=== PATIENT | female | born 1970 | race Caucasian/White ===

== ENCOUNTER 2021-09-10 14:30 | Emergency (ER) | payer OTHER, SELFPAY ==
[2021-09-10 14:31] VITALS: BP 163/94; PULSE 71; RESP 15; TEMP 37.1; O2SAT 98; BMI 40.6
--- NOTE | 2021-09-10 15:20 | RAD_ITS ---
STUDY: X-RAY CHEST REASON FOR EXAM: Female, 51 years old. CHEST PAIN CAD TECHNIQUE: XR Chest 1 View COMPARISON: None FINDINGS: There is no demonstrated pleural abnormality. Normal size heart. Normal mediastinum and angely. Normal visualized pulmonary arteries. Normal visualized aortic arch and descending thoracic aorta. Normal visualized thoracic spine. Normal visualized ribs, clavicles, and shoulders. There is no demonstrated abnormality of the visualized soft tissue structures of the upper abdomen. RAD/Chest 1 View (Portable) IMPRESSION: There are no acute findings. Electronically Signed: Gato Mcgovern MD at 16:11 EDT ,
--- NOTE | 2021-09-10 15:21 | EDS_ITS ---
HPI History of Present Illness Chief Complaint: Hypertension Narrative Narrative: Patient presents with elevated blood pressure readings. She states he has been having problems with elevated blood pressure and was seen by her nurse practitioner and started taking her blood pressure. It has been elevated as high as 170 systolic this morning. She went to work today and presents with her boss because of elevated blood pressure readings. She states she has had intermittent headaches for months. She feels heart palpitations but no chest pressure, but she does feel pressure in her neck radiating towards her ears and head. She denies any nausea or vomiting. No shortness of breath. No problems with urination. She presents because she has had elevated blood pressure readings today above 200 systolic with diastolic being in the 120s. PFSH PFSH Medical History no medical history Home Medications amlodipine 2.5 mg PO DAILY #30 tab 09/10/21 [Rx Last Taken Unknown] Allergy/AdvReac Type Severity Reaction Status Date / Time azithromycin [From Zithromax] Allergy Anaphylaxis Verified 09/10/21 14:31 Penicillins [PCN] Allergy Rash Verified 09/10/21 14:31 Surgical History no surgical history Social History Smoking Status: Never smoker ROS ROS ED ROS Narrative Constitutional: No fever, no chills. HEENT: No sore throat. No neck pain. No loss of vision. No rhinorrhea. Cardiovascular: No chest pain, but feels pressure in her neck and head. Positive palpitations. No pedal edema. Respiratory: No cough, no shortness of breath. Abdominal: No abdominal pain. No nausea. No vomiting. Genitourinary: No dysuria. No hematuria. Musculoskeletal: No myalgias. No arthralgias. Neurologic: Positive headaches. No dizziness. No lightheadedness. Skin: No rash. No change in color. Psychiatric: No depression. No anxiety. EXAM Physical Exam Narrative Exam Narrative: Currently, patient's blood pressure is 163/94. I do feel that comprehensive work-up should be pursued as she did have elevated readings above 200 today. I will obtain a CT of the brain along with chest x-ray for her heart palpitations. I will also obtain basic laboratory work such as CBC, CMP, and troponin. Const Vital Signs: 09/10/21 14:31 09/10/21 15:37 09/10/21 16:22 Temperature 98.7 F Temperature Source Temporal Pulse Rate 71 56 L 65 Respiratory Rate 15 16 18 Blood Pressure 163/94 H 153/84 H 143/82 H Blood Pressure Mean 117 107 102 Pulse Ox 98 98 Oxygen Delivery Method Room Air Room Air MDM MDM MDM Narrative Medical decision making narrative: Comprehensive work-up was pursued. CT of the brain because she was having headaches, shows no evidence of hemorrhage. Chest x-ray read by myself shows no acute process. CBC is normal with a normal white count of 7.1, hemoglobin normal at 13.2. Platelet count normal at 338. CMP shows chloride slightly elevated at 110, but otherwise unremarkable. High- sensitivity troponin less than 3. This is greater than a 3-hour troponin. Her blood pressure has come down to 143/82 by itself. She feels improved. However, I will start her on amlodipine low-dose 2.5 mg orally on a daily basis as her EKG demonstrates sinus bradycardia at 56 bpm with a slight sinus arrhythmia. No STEMI. I feel she be discharged safely home with follow-up to her primary care provider. She will continue her logging of her blood pressure. Disposition is discharged home in stable condition. Return instructions were reviewed. Lab Data Labs: Laboratory Results - last 24 hr 09/10/21 09/10/21 15:40 15:40 WBC 7.1 RBC 4.47 Hgb 13.2 Hct 39.9 MCV 89.3 MCH 29.5 MCHC 33.1 RDW Std Deviation 40.2 RDW Coeff of Antony 12.3 Plt Count 338 MPV 9.1 Immature Gran % (Auto) 0.100 Neut % (Auto) 52.1 Lymph % (Auto) 39.2 Greene % (Auto) 7.2 Eos % (Auto) 0.7 Baso % (Auto) 0.7 Absolute Neuts (auto) 3.7 Absolute Lymphs (auto) 2.78 Nucleated RBC % 0 Sodium 142 Potassium 4.0 Chloride 110 H Carbon Dioxide 26.0 Anion Gap 6 BUN 13 Creatinine 0.88 Estim Creat Clear Calc 66.04 Est GFR (MDRD) Af Amer 87 Est GFR (MDRD) Non-Af 72 BUN/Creatinine Ratio 14.7 Glucose 97 Calcium 9.0 Total Bilirubin 0.50 AST 13 L ALT 23 Alkaline Phosphatase 72 Troponin I High Sens < 3 L Total Protein 7.1 Albumin 3.4 Globulin 3.7 Albumin/Globulin Ratio 0.9 Radiography Diagnostic Testing: Clinical Impression(s) from Imaging Studies Chest X-Ray 09/10/21 15:20 IMPRESSION: There are no acute findings. Electronically Signed: Gato Mcgovern MD at 16:11 EDT , Brain CT 09/10/21 15:52 IMPRESSION: There are no acute intracranial findings. Electronically Signed: Gato Mcgovern MD at 16:11 EDT , Discharge Plan Triage Chief Complaint: Hypertension ED Provider: Pawel Ramirez Dx/Rx/DC Orders Clinical Impression: Hypertension, Palpitations Instructions: ED Hypertension New Begin Treatment, ED Palpitations Prescriptions: New amlodipine 2.5 mg tablet 2.5 mg PO DAILY Qty: 30 RF: 0 Referrals: John Terrazas [Other] - 1 Day Disposition Disposition: Home, Self Care Discharge Date/Time: 09/10/21 16:32
--- NOTE | 2021-09-10 15:21 | EKG12_ITS ---
Test Reason : HYPERTENSION Blood Pressure : / mmHG Vent. Rate : 056 BPM Atrial Rate : 056 BPM P-R Int : 140 ms QRS Dur : 084 ms QT Int : 438 ms P-R-T Axes : -14 006 002 degrees QTc Int : 422 ms Sinus bradycardia with sinus arrhythmia Otherwise normal ECG Confirmed by CHARLENE CALDEÓRN, EDY ([id number]), editor magazine JOAQUIN LEO ([id number]) on 09/11/2021 11:06:45 AM Referred By: CARL Confirmed By:EDY CHANG MD
[2021-09-10 15:37] VITALS: BP 153/84; PULSE 56; RESP 16; O2SAT 98
[2021-09-10 15:47] LABS: Absolute Lymphocyte Count 2.78 X10^3/uL (0.83-4.51); Absolute Neutrophil Count 3.7 X10^3/uL (2.0-7.7); Basophil# 0.05 X10^3/uL; Basophil% 0.7 % (0-1); Eosinophil# 0.05 X10^3/uL; Eosinophils% 0.7 % (0-5); Hematocrit 39.9 % (37-47); Hemoglobin 13.2 g/dL (12.0-15.0); Lymphocyte # 2.78 X10^3/ul (0.83-4.51); Lymphocyte % 39.2 % (19-41); Mean Corp Hgb Conc 33.1 g/dL (32-36); Mean Corpuscular Hgb 29.5 pg (27.0-32.0); Mean Corpuscular Volume 89.3 fL (81-99); Mean Platelet Vol. 9.1 fl (6.2-12.0); Monocyte# 0.51 X10^3/uL; Monocyte% 7.2 % (0-10); NRBC Flagged by Analyzer 0 % (0-5); Neutrophil % 52.1 % (47-70); Platelet Count 338 K/mm3 (150-450); RBC Distribution Width CV 12.3 % (11.6-14.6); RBC Distribution Width SD 40.2 fl (35.1-43.9); Red Blood Count 4.47 M/mm3 (4.2-5.4); White Blood Count 7.1 K/mm3 (4.4-11.0)
--- NOTE | 2021-09-10 15:52 | CT_ITS ---
STUDY: CT BRAIN WITHOUT CONTRAST REASON FOR EXAM: Female, 51 years old. Headaches, Hypertension TECHNIQUE: Transaxial CT imaging of the brain was performed without administration of intravenous contrast material. Individualized dose optimization techniques were used for this CT. COMPARISON: None FINDINGS: Normal calvarium. Normal soft tissues. Normal size ventricles and extra-axial spaces for the patient''s age. Normal white matter tracts of the cerebral hemispheres. Normal basal ganglia and thalami. Normal brainstem. Normal cerebellum. There is no intracranial hemorrhage. There are no findings of an acute ischemic infarction. Normal visualized paranasal sinuses. ASPECTS 10 CT/Brain/Head without Contrast IMPRESSION: There are no acute intracranial findings. Electronically Signed: Gato Mcgovern MD at 16:11 EDT ,
[2021-09-10 16:07] LABS: ALB/GLOB Ratio 0.9 RATIO (0.9-2.4); AST(SGOT) 13 U/L (15-37); Alanine Aminotransfer ALT/SGPT 23 U/L (13-56); Albumin, Serum 3.4 g/dL (3.2-5.0); Alkaline Phosphatase 72 U/L (45-117); Anion Gap 6 (5-15); BUN 13 mg/dL (7-18); BUN/Creat Ratio 14.7 RATIO (10-20); Chloride 110 mmol/L (98-107); Creatinine, Serum 0.88 mg/dL (0.55-1.02); EST Glomerular Filtration Rate 72 mL/min (>60); Est Glom Filt Rate - Afr Amer 87 mL/min (>60); Estimated Creatinine Clearance 66.04 ml/min; Globulin 3.7 g/dL (2.2-4.2); Glucose 97 mg/dL (74-106); Protein, Total 7.1 g/dL (6.4-8.2); Sodium Level 142 mmol/L (136-145); Troponin-I HS < 3 pg/mL (3.0-54.0)
[2021-09-10 16:22] VITALS: BP 143/82; PULSE 65; RESP 18
[2021-09-10 16:28] VITALS: BP 143/78; PULSE 64; RESP 18; TEMP 36.6; O2SAT 98
== END 2021-09-10 16:32 | disposition home or self-care (01) ==
PROVIDERS: Emergency Provider Emergency Medicine; Visit Provider Emergency Medicine
DX: I10 Essential (primary) hypertension (principal); R00.2 Palpitations
CPT/HCPCS: 70450; 71045; 80053; 84484; 85025; 93005; 99284; A4216